=== PATIENT | male | born 1960 | race American Indian/Alaskan Native ===

== ENCOUNTER 2020-11-07 08:36 | Outpatient (CLI) | payer MEDICARE ==
--- NOTE | 2020-11-07 12:00 | Magnetic Resonance Report ---
MRI LUMBAR SPINE 11/07/2020 INDICATION / CLINICAL INFORMATION: LOW BACK PAIN / HIP PAIN. COMPARISON: None available. FINDINGS: GENERAL OBSERVATIONS: Unenhanced MR images of the lumbar spine were obtained. There is subtle left convex scoliosis of the lower lumbar spine. There is no evidence of acute abnorm ality. Multilevel degenerative changes are present as detailed below. [id number] ANALYSIS: L5-S1: Moderate symmetric diffuse disc bulging and mild facet degenerative changes. L4-5: Moderate symmetric diffuse disc bulging and mild facet degenerative changes. L3-4: Mild diffuse disc bulging and moderate facet degenerative changes. Moderate central canal narro wing. L2-3: Minimal diffuse disc bulging. L1-2: Minimal diffuse disc bulging. BONE MARROW: Prominent degenerative bone marrow signal changes are present at the L4 and L5 levels. O therwise unremarkable. SPINAL CORD/CAUDA EQUINA: Unremarkable PARASPINAL SOFT TISSUES: No significant abnormality. IMPRESSION: Degenerative changes as described above. No evidence of significant stenosis or direct nerve root com pression. Signer Name: Zaid Tse MD Signed: 11/07/2020 11:56 AM Workstation Name: [id number]
--- NOTE | 2020-11-07 14:51 | Nuclear Medicine Report ---
NUCLEAR MEDICINE WHOLE BODY BONE IMAGING STUDY. HISTORY: MALIGNANT NEOPLASM OF PROSTATE COMPARISON: No prior bone scans are available for comparison. TECHNIQUE: The patient was administered 25.6 mCi of technetium 99m labeled MDP intravenously. FINDINGS: There is bilateral, relatively symmetric articular activity which is most likely degenerative given t he distribution and symmetry. No asymmetric radiotracer activity is seen within the included axial and appendicular skeleton. There is normal soft tissue activity in the kidneys and urinary bladder. IMPRESSION: No scintigraphic evidence of osseous metastatic disease. Presumed degenerative changes, as above. Signer Name: Aubrey Melton MD Signed: 11/07/2020 2:47 PM Workstation Name: [id number]
== END 2020-11-07 08:37 | disposition home or self-care (01) ==
LOC: NM 08:36
PROVIDERS: ATTEND Internal Medicine
DX: M51.37 Other intervertebral disc degeneration, lumbosacral region (principal); M47.817 Spondylosis without myelopathy or radiculopathy, lumbosacral region
CPT/HCPCS: 72148; 78306; A9503